=== PATIENT | female | born 1990 | race Two or more races ===

== ENCOUNTER 2022-02-23 11:19 | Outpatient (REF) | payer OTHER, SELFPAY ==
[2022-02-23 13:00] LABS: Valproate 73.4 mcg/mL (50.0-100.0)
== END 2022-02-23 11:20 | disposition home or self-care (01) ==
LOC: HO.LAB 11:19
PROVIDERS: PCP Pediatrics; Visit Provider Psychiatry & Neurology Neurology
DX: G40.909 Epilepsy, unspecified, not intractable, without status epilepticus (principal)
CPT/HCPCS: 36415; 80164